=== PATIENT | male | born 1965 | race African-American/Black ===

== ENCOUNTER 2023-09-20 14:41 | Inpatient (IN) | payer OTHER, MEDICAID ==
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
[2023-09-20] MEDS: ONDANSETRON 4 MG/2 ML VIAL IM STA (18:04)
[2023-09-20] MEDS: ONDANSETRON ODT 4 MG TAB PO STA (19:47)
[2023-09-20 21:26] LABS: Amphetamine Screen,Urine Not Detected (NotDetected); Barbiturate Screen,Urine Not Detected (NotDetected); Benzodiazepines Screen,Urine Not Detected (NotDetected); Cocaine Screen,Urine Not Detected (NotDetected); Methadone Screen, Urine Not Detected (NotDetected); Opiate Screen,Urine Not Detected (NotDetected); Phencyclidine Screen,Urine Not Detected (NotDetected); Tricyclic Antidepressant,Urine Not Detected (NotDetected); Urn Cannabinoid Scrn Not Detected (NotDetected)
[2023-09-20 21:27] LABS: Oxycodone Screen, Urine Not Detected (NotDetected)
[2023-09-20] MEDS ORDERED: haloperidoL 5 MG TAB PO PRN (22:15)
[2023-09-20] MEDS ORDERED: LORazepam 2 MG/ML INJ IM PRN (22:15)
[2023-09-20] MEDS ORDERED: LORazepam 1 MG TAB PO PRN (22:15)
[2023-09-20] MEDS ORDERED: HALOPERIDOL LACTATE 5 MG/ML 1 ML VIAL IM PRN (22:15)
[2023-09-21] MEDS: traZODone HCL 50 MG TAB PO PRN (00:02)
[2023-09-21] MEDS ORDERED: IBUPROFEN 600 MG TAB PO PRN (01:13)
[2023-09-21] MEDS ORDERED: LORazepam 2 MG/ML INJ IM PRN (01:13)
[2023-09-21] MEDS ORDERED: ACETAMINOPHEN TAB 325 MG TAB PO PRN (01:13)
[2023-09-21] MEDS ORDERED: haloperidoL 5 MG TAB PO PRN (01:13)
[2023-09-21] MEDS ORDERED: traZODone HCL 50 MG TAB PO PRN (01:13)
[2023-09-21] MEDS ORDERED: MAGNESIUM HYDROXIDE 2,400 MG/30 ML CUP PO PRN (01:13)
[2023-09-21] MEDS ORDERED: HALOPERIDOL LACTATE 5 MG/ML 1 ML VIAL IM PRN (01:13)
[2023-09-21] MEDS: LORazepam 1 MG TAB PO PRN (02:05)
[2023-09-21] MEDS: LOSARTAN-HCTZ 50-12.5 MG 1 EACH TAB PO SCH (02:22)
[2023-09-21] MEDS: LOSARTAN 50 MG TAB PO SCH (02:23)
[2023-09-21] MEDS: ATORVASTATIN 10 MG TAB PO SCH (02:24)
[2023-09-21 02:35] LABS: Appearance,Urine Clear (Clear); Bilirubin,Urine Negative (Negative); Blood,Urine Small (Negative); Color,Urine Yellow; Glucose,Urine (UA) Trace (Negative); Hyaline Casts,Urine 1 /lpf (0-2); Ketones,Urine 1+ (Negative); Leukocyte Esterase,Urine Negative (Negative); Mucus,Urine Many /hpf; Nitrite,Urine Negative (Negative); Protein,Urine 2+ (Negative); RBC,Urine 1 /hpf (0-5); Specific Gravity,Urine 1.029 (1.001-1.035); Urobilinogen,Urine <2.0 mg/dL (<2.0); WBC,Urine 1 /hpf (0-5)
[2023-09-21 07:26] LABS: Basophils % (A) 0 %; Eosinophils # (A) 0.3 k/uL (0-0.7); Eosinophils % (A) 3 %; HCT 40.2 % (39.0-53.0); HGB 12.4 gm/dL (13.0-17.5); Lymphocytes # (A) 1.4 k/uL (1.0-4.8); Lymphocytes % (A) 19 %; MCHC 30.9 g/dL (31.0-37.0); MCV 74.5 fL (80.0-100.0); Mean Platelet Volume 7.9; Microcytosis Slight; Monocytes # (A) 0.7 k/uL (0-1.0); Monocytes % (A) 9 %; Neutrophils % (A) 66 %; Platelet Count 252 k/uL (150-450); RBC 5.39 m/uL (4.30-5.90); RDW 14.5 % (11.5-15.5); WBC 7.6 k/uL (3.8-10.6)
[2023-09-21 07:53] LABS: ALT 27 U/L (4-49); AST 38 U/L (17-59); African American GFR (CKD) >90 (>60 ml/min/1.73 sqM); Albumin 4.2 g/dL (3.5-5.0); Alkaline Phosphatase 113 U/L (38-126); Anion Gap 3 mmol/L; Bilirubin, Delta 0.4 mg/dL (0.0-0.2); Bilirubin,Unconjugated 1.1 mg/dL (0.0-1.1); Blood Urea Nitrogen 11 mg/dL (9-20); Calcium 9.3 mg/dL (8.4-10.2); Carbon Dioxide 31 mmol/L (22-30); Chloride 104 mmol/L (98-107); Glucose 94 mg/dL (74-99); Non-African American GFR(CKD) >90 (>60 ml/min/1.73 sqM); Potassium 3.3 mmol/L (3.5-5.1); Sodium 138 mmol/L (137-145); Total Bilirubin 1.5 mg/dL (0.2-1.3); Total Protein 7.4 g/dL (6.3-8.2)
[2023-09-21] MEDS ORDERED: ATORVASTATIN 10 MG TAB PO SCH (09:00)
[2023-09-21] MEDS ORDERED: LOSARTAN-HCTZ 50-12.5 MG 1 EACH TAB PO SCH (09:00)
[2023-09-21] MEDS: amLODIPine 10 MG TAB PO SCH (09:04)
--- NOTE | 2023-09-21 09:55 | P.CONS ---
History of Present Illness - Reason for Consult Consult date: 09/21/23 Medical H&P Requesting physician: Charles Pringle - History of Present Illness History of Presenting Illness: Patient is a 57-year-old male with a past medical history of hypertension and hyperlipidemia. He is currently admitted to inpatient mental health unit for reports of depression. We were consulted for medical H&P and evaluation during this hospitalization. Patient seen and fully evaluated in the mental health unit. Patient ambulatory with a steady gait. He was calm and cooperative throughout assessment. Patient reports that he is currently hospitalized because he was feeling a little down, but states he is feeling better now looking forward to discharge. Patient reports only past medical history is hypertension and hyperlipidemia. Patient does admit to binge drinking behaviors, but denies daily alcohol use or any other drug use. He reports quitting smoking 20 years ago and denies any further nicotine use. Patient reports he is currently having a lot going on in his life and just feeling a little down and discouraged. He denies suicidal or homicidal ideations denies any hallucinations. Patient denies any other complaints including headache, lightheadedness, dizziness, chest pain, palpitations, shortness of breath, cough or congestion, abdominal pain, nausea, vomiting, or experiencing any numbness/tingling/weakness/swelling in his extremities. Review of systems: Pertinent positives and negatives as discussed in HPI, a complete review of systems was performed and all other systems are negative. Physical exam: Vital signs reviewed and stable. General: Nontoxic, no distress and appears stated age. Derm: Skin warm and dry, normal coloration for ethnicity. Head: Atraumatic, normocephalic and symmetric. Eyes: EOMs intact, no lid lag, and anicteric sclera Mouth: no lip lesions, mucus membranes moist Cardiovascular: regular rate and rhythm with normal S1S2, no murmur, positive posterior tibial pulses bilaterally, and cap refill < 2 seconds. Lungs: Respirations even, regular, and unlabored on room air. Lungs CTA bilaterally, no rhonchi, no rales, no wheezing, and no accessory muscle usage. Abdominal: soft, nontender to palpation, no guarding, no appreciable organomegaly Ext: ROM intact. No gross muscle atrophy, no edema, no contractures Neuro: Speech clear, face symmetrical and CN II-XII grossly intact with no noted focal neuro deficits Psych: Alert and oriented to person, place, time, and situation. Appropriate and pleasant affect. Assessment and Plan of Care: Alcohol abuse, with binge drinking behaviors Hyperbilirubinemia, likely secondary to above Monitor for signs/symptoms of withdrawal. Hypertension, poorly controlled Patient initially with poorly controlled hypertension and reports missing 2 days of his medications. Patient started back on daily medications with amlodipine 10 mg daily and losartan 50 mg daily. Hyperlipidemia Patient to continue daily medication regimen with atorvastatin 10 mg nightly. Depression Management per primary admitting psychiatric team. Data and imaging reviewed: CBC showing mild microcytic anemia with a hemoglobin of 12.4. BMP showing hypokalemia with potassium of 3.3 and hypercarbia with bicarb of 31. Liver profile showing elevated total bili of 1.5 and delta bilirubin of 0.4. Hemoglobin A1c slightly elevated at 6.2%. TSH normal findings at 2.980. Urine drug screen was negative. Urinalysis negative for infection. COVID PCR was negative. Vital signs reviewed. Blood pressure 144/101, heart rate 101, respiratory rate 16, temp 98.4 F, and SpO2 of 97% on room air. Thank you for allowing us to participate in the care of this pleasant patient. Do not hesitate to contact us with questions. Someone can be reached from the [facility] hospitalist group all hours of the day at [phone] or via [employer]. Patient was seen independently by Nurse Pracitioner. This document was prepared using [employer] dictation software. Please allow for errors in bulk tank driver, while rare they do occur. I reviewed the documentation as provided by the RODY above, who is the original author of this note. I agree with the documented assessment and plan, with the following changes: none Past Medical History Past Medical History: Hyperlipidemia, Hypertension History of Any Multi-Drug Resistant Organisms: None Reported Past Surgical History: No Surgical Hx Reported Past Anesthesia/Blood Transfusion Reactions: No Reported Reaction Past Psychological History: No Psychological Hx Reported Smoking Status: Former smoker Past Alcohol Use History: Occasional Past Drug Use History: None Reported Medications and Allergies Home Medications Medication Instructions Recorded Confirmed Type Atorvastatin [Lipitor] 10 mg PO DAILY 09/20/23 09/21/23 History Losartan/Hydrochlorothiazide 1 tab PO DAILY 09/20/23 09/21/23 History [Losartan-Hctz 100-12.5 mg Tab] amLODIPine [Norvasc] 10 mg PO DAILY 09/20/23 09/21/23 History Allergies Allergy/AdvReac Type Severity Reaction Status Date / Time No Known Allergies Allergy Verified 09/21/23 01:22 Physical Exam Osteopathic Statement: *. No significant issues noted on an osteopathic structural exam other than those noted in the History and Physical/Consult. Vitals: Vital Signs Temp Pulse Pulse Pulse Resp BP BP 09/21/23 09:03 101 H 09/21/23 02:15 98.4 F 88 14 171/109 09/20/23 21:11 98.7 F 78 18 166/93 09/20/23 15:05 98.7 F 107 H 18 156/91 BP Pulse Ox 09/21/23 09:03 144/101 09/21/23 02:15 97 09/20/23 21:11 97 09/20/23 15:05 98 Intake and Output 09/20/23 09/21/23 09/21/23 22:59 06:59 14:59 Other: Weight 185 kg 84.397 kg Results CBC & Chem 7: 09/21/23 06:49 09/21/23 06:49 Labs: Abnormal Lab Results - Last 24 Hours (Table) 09/20/23 09/21/23 09/21/23 Range/Units 17:30 06:49 06:49 Hgb 12.4 L (13.0-17.5) gm/dL MCV 74.5 L (80.0-100.0) fL MCH 23.0 L (25.0-35.0) pg MCHC 30.9 L (31.0-37.0) g/dL Potassium 3.3 L (3.5-5.1) mmol/L Carbon Dioxide 31 H (22-30) mmol/L Total Bilirubin 1.5 H (0.2-1.3) mg/dL Delta Bilirubin 0.4 H (0.0-0.2) mg/dL Urine Protein 2+ H (Negative) Urine Glucose (UA) Trace H (Negative) Urine Ketones 1+ H (Negative) Urine Blood Small H (Negative) Urine Mucus Many H (None) /hpf
[2023-09-21] MEDS: METOPROLOL TARTRATE 25 MG TAB PO SCH (12:13)
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
[2023-09-21] MEDS: MAG HYDROX/AL HYDROX/SIMETH 355 ML BOTTLE PO PRN (15:03)
[2023-09-21] MEDS: POTASSIUM CHLORIDE ER 20 MEQ TAB.ER PO STA (15:05)
[2023-09-21 15:06] LABS: Chol/HDL Ratio 3.22 Ratio; LDL Cholesterol,Calculated 113.8 mg/dL (0.0-131.0)
[2023-09-21] MEDS: MELATONIN 3 MG TABLET PO SCH (20:32)
[2023-09-22 06:54] VITALS: BP 149/106; PULSE 79; RESP 16; TEMP 98.1
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
== END 2023-09-22 12:05 | disposition home or self-care (01) | DRG 881 ==
LOC: EC 14:41 → 3MHU 09-21 01:07
PROVIDERS: ADMIT Psychiatry & Neurology Psychiatry; ATTEND Psychiatry & Neurology Psychiatry
DX: F43.21 Adjustment disorder with depressed mood (principal); R45.851 Suicidal ideations; F10.10 Alcohol abuse, uncomplicated; E78.5 Hyperlipidemia, unspecified; D50.9 Iron deficiency anemia, unspecified; I10 Essential (primary) hypertension; Z11.52 Encounter for screening for COVID-19; Z28.310 Unvaccinated for COVID-19; F41.9 Anxiety disorder, unspecified; E80.6 Other disorders of bilirubin metabolism; E87.6 Hypokalemia; Z79.899 Other long term (current) drug therapy; Z56.0 Unemployment, unspecified; Z59.819 Housing instability, housed unspecified; Z65.3 Problems related to other legal circumstances; Z87.891 Personal history of nicotine dependence; Z71.41 Alcohol abuse counseling and surveillance of alcoholic; Z71.51 Drug abuse counseling and surveillance of drug abuser
CPT/HCPCS: 80053; 80061; 80306; 81001; 82075; 82248; 83036; 84443; 85025; 87635; 99285